=== PATIENT | female | born 1940 | race American Indian/Alaskan Native ===

== ENCOUNTER 2020-12-31 11:48 | Outpatient (CLI) | payer OTHER | END 2020-12-31 11:51 | disposition home or self-care (01) | LOC: SONOGRAMA 11:48 | PROVIDERS: ATTEND Pathology Anatomic Pathology & Clinical Pathology | DX: E04.1 Nontoxic single thyroid nodule (principal) ==

== ENCOUNTER 2021-01-08 08:00 | Outpatient (CLI) | payer OTHER | END 2021-01-08 08:30 | disposition home or self-care (01) | LOC: PPH VACUNA 08:00 | DX: Z23 Encounter for immunization (principal) ==

== ENCOUNTER 2021-07-18 13:45 | Outpatient (CLI) | payer OTHER | END 2021-07-18 14:00 | disposition home or self-care (01) | LOC: PPH VACUNA 13:45 | PROVIDERS: ATTEND Emergency Medicine Pediatric Emergency Medicine | DX: Z23 Encounter for immunization (principal) ==

== ENCOUNTER 2022-12-03 07:32 | Outpatient (CLI) | payer OTHER | END 2022-12-03 07:33 | disposition home or self-care (01) | LOC: NUCLEAR 07:32 | PROVIDERS: ATTEND Specialist | DX: D35.1 Benign neoplasm of parathyroid gland (principal); E21.4 Other specified disorders of parathyroid gland ==

== ENCOUNTER 2022-12-12 12:25 | Outpatient (CLI) | payer OTHER | END 2022-12-12 12:36 | disposition home or self-care (01) | LOC: RAD 12:25 | PROVIDERS: ATTEND Specialist | DX: I70.0 Atherosclerosis of aorta (principal); J45.991 Cough variant asthma ==

== ENCOUNTER 2024-02-23 11:01 | Outpatient (CLI) | payer OTHER | END 2024-02-23 11:12 | disposition home or self-care (01) | LOC: SONOGRAMA 11:01 | PROVIDERS: ATTEND Specialist | DX: N20.0 Calculus of kidney (principal) ==

== ENCOUNTER 2025-04-10 13:47 | Outpatient (CLI) | payer OTHER | END 2025-04-10 14:00 | disposition home or self-care (01) | LOC: SONOGRAMA 13:47 | PROVIDERS: ATTEND Specialist | DX: M70.70 Other bursitis of hip, unspecified hip (principal); M70.71 Other bursitis of hip, right hip; Q45.3 Other congenital malformations of pancreas and pancreatic duct; C25.3 Malignant neoplasm of pancreatic duct ==